=== PATIENT | male | born 1960 | race Caucasian/White ===

== ENCOUNTER → 2018-02-27 | Outpatient (CLI) | payer OTHER ==
[~2018-02-27] MED LIST: LORTAB 5/500 501 TAB PO; LORTAB ELIX0.5 MG/ML PO; NO HOME MEDICATIONS; ROLAIDS 675 MG-1 CT2 PO
== END ==
LOC: COL.RAD 15:56
DX: M47.814 Spondylosis without myelopathy or radiculopathy, thoracic region (principal); M46.82 Other specified inflammatory spondylopathies, cervical region; M48.02 Spinal stenosis, cervical region

== ENCOUNTER 2020-05-12 16:12 | Inpatient (IN) | payer OTHER ==
[~2020-05-12] VITALS: Ht 177.8 cm; Wt 80.0 kg
[2020-05-12] VITALS (325 sets, daily range): BP systolic 151–163; BP diastolic 82–113; PULSE 77–85; TEMP 97–98.3; O2SAT 92–99
[2020-05-12] MEDS ORDERED: ASPIRIN 81M81 MG/TA2 PO (17:03)
[2020-05-12] MEDS ORDERED: ZYRTEC 10MG10 MG PO (17:04)
[2020-05-12] MEDS ORDERED: OMEGA-3 1000 MG1 CAP PO (17:05)
[2020-05-12] MEDS ORDERED: PRINIVIL40 MG PO (17:05)
[2020-05-12] MEDS ORDERED: MULTI VITAMINS1 TAB PO (17:06)
[2020-05-12] MEDS ORDERED: ALEVE LIQCAPS PO (17:07)
--- NOTE | 2020-05-12 17:29 | NUR ---
SATHYA Herrera and MD Teressa in room assessing pt
[2020-05-12 18:03] LABS: BASO % 0.2 % (0.0-2.0); EOS % 0.2 % (0-4.0); GRAN # 7.9 (1.4-6.5); GRAN % 88.1 % (42.2-75.2); HEMATOCRIT 45.9 % (42.0-52.0); HEMOGLOBIN 15.6 g/dl (13.5-18.0); LYMPH # 0.6 (1.2-3.4); LYMPH % 6.9 % (20.0-51.0); MEAN CELL VOLUME 88 fl (80.0-100.0); MEAN CORPUSCULAR HEMOGLOBIN 30 pg (27.0-31.0); MEAN CORPUSCULAR HGB CONC 34 g/dl (33.0-37.0); MEAN PLATELET VOLUME 9.4 fl (7.4-10.4); MONO # 0.4 (0.1-0.6); MONO % 4.3 % (1.7-9.3); PLATELET COUNT 210 K/mm3 (130-400)
[2020-05-12 18:20] LABS: ALBUMIN 4.3 gm/dL (3.5-5.0); BILIRUBIN,TOTAL 0.9 mg/dL (0.0-1.0); CALCIUM 9.2 mg/dL (8.4-10.2); CREATININE, serum 0.47 (0.66-1.25); MAGNESIUM 1.7 mg/dL (1.6-2.3); POTASSIUM 3.8 mmol/L (3.4-5.0); TOTAL PROTEIN 7.4 gm/dL (6.4-8.2)
[2020-05-13] VITALS (298 sets, daily range): BP systolic 107–147; BP diastolic 66–84; PULSE 72–89; TEMP 98–98.5; O2SAT 81–99
[2020-05-13 05:48] LABS: BASO % 0.3 % (0.0-2.0); EOS % 0.3 % (0-4.0); GRAN # 6.8 (1.4-6.5); HEMATOCRIT 43.8 % (42.0-52.0); HEMOGLOBIN 14.7 g/dl (13.5-18.0); LYMPH % 11.1 % (20.0-51.0); MEAN CELL VOLUME 88 fl (80.0-100.0); MEAN CORPUSCULAR HEMOGLOBIN 30 pg (27.0-31.0); MEAN CORPUSCULAR HGB CONC 34 g/dl (33.0-37.0); MEAN PLATELET VOLUME 9.6 fl (7.4-10.4); MONO # 0.8 (0.1-0.6); PLATELET COUNT 205 K/mm3 (130-400); RED BLOOD COUNT 4.97 M/mm3 (4.20-5.60); REDCELL DISTRIBUTION WIDTH-CV 13.2 % (11.5-14.5)
[2020-05-13 06:00] LABS: CALCIUM 8.8 mg/dL (8.4-10.2); CREATININE, serum 0.57 (0.66-1.25); POTASSIUM 3.9 mmol/L (3.4-5.0)
[2020-05-13] MEDS ORDERED: CLEOCIN HC150 MG/CAP PO (11:00)
--- NOTE | 2020-05-13 13:34 | NUR ---
Chaplain maciel and offered support with patient.
--- NOTE | 2020-05-13 13:45 | NUR ---
DC instructions reviewed, INT DCd, pt dressed and escorted to entrance via WC. Questions addressed. Belongings returned
--- NOTE | 2020-05-13 16:35 | NUR ---
DAQUAN met with patient inpatients room to complete intake. Patient resides in [facility] alone, with his friend Wally [phone] as patients care support and EMR. PAtient indicated being pretty independent at home, he does utilize a walker and a wheelchair. Patient reports that his provider is Dr. Kaiser with an upcoming appointment this Friday. Patient indicated that he obtains his medications from [facility] with no concerns. SW received a referral for the patient to order DME a front wheeled Walker [id number]. Patient chose [facility] to receive DME, and DAQUAN received signature from patient, and informed hi that [facility] was closed over the weekend. DAQUAN received providers signature. and prepared forms to be completed Friday. Patient discharged home.
== END 2020-05-13 13:45 | disposition home or self-care (01) | DRG 205 ==
LOC: IMCU 16:12 → ICU 16:45
PROVIDERS: Nurse Practitioner Family; ADMIT Hospitalist
DX: J95.89 Other postprocedural complications and disorders of respiratory system, not elsewhere classified (principal); J69.0 Pneumonitis due to inhalation of food and vomit; G60.0 Hereditary motor and sensory neuropathy; K21.9 Gastro-esophageal reflux disease without esophagitis; Z98.890 Other specified postprocedural states; I10 Essential (primary) hypertension; N40.0 Benign prostatic hyperplasia without lower urinary tract symptoms; E78.5 Hyperlipidemia, unspecified; R53.81 Other malaise; H40.9 Unspecified glaucoma; M54.2 Cervicalgia; G89.29 Other chronic pain; Z88.0 Allergy status to penicillin; Z91.041 Radiographic dye allergy status
CPT/HCPCS: 99222-AI; 99239; J0360; J0696

== ENCOUNTER → 2020-05-17 | Outpatient (CLI) | payer OTHER ==
[~2020-05-17] MED LIST changes: +ALEVE LIQCAPS PO; +ASPIRIN 81M81 MG/TA2 PO; +CLEOCIN HC150 MG/CAP PO; +MULTI VITAMINS1 TAB PO; +OMEGA-3 1000 MG1 CAP PO; +PRINIVIL40 MG PO; +ZYRTEC 10MG10 MG PO
[2020-05-18 18:51] LABS: CLOSTRIDIUM DIFF A/B NEG; CLOSTRIDIUM DIFF A/B INTERP No C.diff present
== END ==
LOC: COL.LAB 17:19
PROVIDERS: Surgery
DX: T17.908S Unspecified foreign body in respiratory tract, part unspecified causing other injury, sequela (principal); J98.4 Other disorders of lung

== ENCOUNTER 2022-04-08 15:11 | Emergency (ER) | payer OTHER ==
[~2022-04-08] VITALS: Ht 177.8 cm; Wt 84.1 kg
[2022-04-08 15:30] VITALS: TEMP 97.9
[2022-04-08 16:42] LABS: BASO # 0.1 K/mm3 (0.0-0.2); EOS # 0.2 K/mm3 (0.0-0.7); EOS % 4.6 % (0.0-4.0); GRAN # 3.3 K/mm3 (1.4-6.5); GRAN % 66.4 % (42.2-75.2); HEMATOCRIT 42.8 % (42.0-52.0); HEMOGLOBIN 15.1 g/dl (13.5-18.0); LYMPH # 0.8 K/mm3 (1.2-3.4); LYMPH % 16.3 % (20.0-51.0); MEAN CELL VOLUME 87 fl (80.0-100.0); MEAN CORPUSCULAR HEMOGLOBIN 31 pg (27-31); MEAN CORPUSCULAR HGB CONC 35 g/dl (33.0-37.0); MEAN PLATELET VOLUME 9.5 fl (7.4-10.4); MONO # 0.6 K/mm3 (0.1-0.6); MONO % 11.7 % (1.7-9.3); PLATELET COUNT 201 K/mm3 (130-400); RED BLOOD COUNT 4.92 M/mm3 (4.20-5.60); REDCELL DISTRIBUTION WIDTH-CV 13.2 % (11.5-14.5)
[2022-04-08 16:59] LABS: BILIRUBIN,TOTAL 0.6 mg/dL (0.2-1.2); C-REACTIVE PROTEIN 0.14 mg/dL (0.00-0.50); CALCIUM 8.8 mg/dL (8.4-10.2); CREATININE, serum 0.66 mg/dL (0.72-1.25); POTASSIUM 3.9 mmol/L (3.5-4.5); TOTAL PROTEIN 6.5 gm/dL (6.2-8.1)
[2022-04-08 17:09] LABS: ERYTHROCYTE SEDIMENTATION RATE 1 mm/hr (0-30)
[2022-04-08] MEDS ORDERED: CLEOCIN HCL300 MG PO (17:34)
[2022-04-08 18:13] VITALS: BP 157/87; PULSE 96
== END 2022-04-08 18:13 | disposition home or self-care (01) ==
LOC: COL.ER 15:11
PROVIDERS: Emergency Medicine
DX: M79.89 Other specified soft tissue disorders (principal); Z88.0 Allergy status to penicillin; Z28.310 Unvaccinated for COVID-19
CPT/HCPCS: J1650

== ENCOUNTER → 2022-04-09 | Outpatient (CLI) | payer OTHER ==
[~2022-04-09] MED LIST changes: +CLEOCIN HCL300 MG PO
== END ==
LOC: COL.VAS 08:22
DX: I82.411 Acute embolism and thrombosis of right femoral vein (principal); I82.431 Acute embolism and thrombosis of right popliteal vein